=== PATIENT | male | born 1955 | race Caucasian/White ===

== ENCOUNTER → 2020-07-23 | Outpatient (CLI) | payer BC, OTHER ==
[~2020-07-23] MED LIST: ASPI-630 PO
[2020-07-24 14:19] LABS: CERULOPLASMIN 22.5 mg/dL (16.0-31.0)
[2020-07-25 12:15] LABS: MITOCHONDRIAL ABDY <20.0 Units (0.0-20.0); SMOOTH MUSCLE AB 6 Units (0-19)
[2020-07-25 16:24] LABS: ANA INTERP Negative (.)
[2020-07-26 09:54] VITALS: BP 103/62
== END ==
LOC: EDBD → LAB 12:49 → MERGE 12:49 → SURGPAT 12:49 → UNMERGE 07-26 10:13 → MERGE 07-26 10:13
PROVIDERS: ATTEND Internal Medicine Gastroenterology
DX: Z01.812 Encounter for preprocedural laboratory examination (principal); Z20.828 Contact with and (suspected) exposure to other viral communicable diseases; K74.60 Unspecified cirrhosis of liver
CPT/HCPCS: 36415; 82103; 82390; 82728; 83516; 86038; 86705; 86709; 86803; 87340; U0003

== ENCOUNTER → 2021-05-30 | Outpatient (CLI) | payer BC ==
[2020-07-26 09:54] VITALS: BP 103/62
[2021-05-30 11:32] LABS: ALBUMIN 4.2 g/dL (3.4-5.0); ALBUMIN/GLOBULIN RATIO 1.4 (1.0-1.7); CALCIUM 9.4 mg/dL (8.5-10.1); CHOLESTEROL/HDL RATIO 2.1; CREATININE 1.1 mg/dL (0.7-1.3); GFR 66.6; POTASSIUM 4.3 mmol/L (3.5-5.1); TOTAL BILIRUBIN 0.8 mg/dL (0.2-1.0); TOTAL PROTEIN 7.2 g/dL (6.4-8.2)
== END ==
LOC: LAB 10:51
PROVIDERS: ATTEND Nurse Practitioner
DX: E78.2 Mixed hyperlipidemia (principal)
CPT/HCPCS: 36415; 80053; 80061

== ENCOUNTER → 2021-12-09 | Outpatient (CLI) | payer BC ==
[2020-07-26 09:54] VITALS: BP 103/62
[2021-12-09 13:33] LABS: ALBUMIN/GLOBULIN RATIO 1.3 (1.0-1.7); CALCIUM 8.9 mg/dL (8.5-10.1); CREATININE 1.3 mg/dL (0.7-1.3); GFR 54.9; POTASSIUM 4.4 mmol/L (3.5-5.1); TOTAL BILIRUBIN 0.4 mg/dL (0.2-1.0); TOTAL PROTEIN 7.2 g/dL (6.4-8.2)
== END ==
LOC: LAB 12:59
PROVIDERS: ATTEND Nurse Practitioner
DX: E78.2 Mixed hyperlipidemia (principal)
CPT/HCPCS: 36415; 80053

== ENCOUNTER → 2022-01-06 | Outpatient (CLI) | payer BC ==
[2020-07-26 09:54] VITALS: BP 103/62
[2022-01-06 09:10] LABS: ALBUMIN 4.1 g/dL (3.4-5.0); ALBUMIN/GLOBULIN RATIO 1.4 (1.0-1.7); CALCIUM 9.1 mg/dL (8.5-10.1); CREATININE 1.4 mg/dL (0.7-1.3); GFR 50.4; TOTAL BILIRUBIN 0.7 mg/dL (0.2-1.0)
== END ==
LOC: LAB 08:12
PROVIDERS: ATTEND Nurse Practitioner
DX: E78.2 Mixed hyperlipidemia (principal)
CPT/HCPCS: 36415; 80053